=== PATIENT | female | born 1970 ===

== ENCOUNTER 2016-03-25 14:33 | Emergency (ER) | payer OTHER ==
[~2016-03-25] VITALS: Ht 160 cm; Wt 108.9 kg
--- NOTE | 2016-03-25 16:49 | ED UPPER/LOWER EXTREMITY COMPL ---
History of Present Illness General Chief Complaint: Lower Extremity Injury Stated Complaint: RT LEG AND ANKLE PAIN Source: patient Exam Limitations: no limitations Vital Signs & Intake/Output Vital Signs & Intake/Output Vital Signs Date Time Temp Pulse Resp B/P Pulse O2 O2 Flow FiO2 Ox Delivery Rate 03/25 1830 97.4 81 20 144/98 96 Room Air 03/25 1535 98.7 83 20 161/84 94 Room Air Room Air Allergies Coded Allergies: naproxen (Intermediate, SWELLING IN JAW 03/25/16) Uncoded Allergies: VICODEN (Intermediate, SWELLING IN GLANDS IN JAW. 03/25/16) Triage Note: PT TO ED S/P "I WAS WALKING YESTERDAY AND MY LEFT LEG WENT UNDERNEATH ME". PT STATING "I WENT DOWN ON MY LEFT KNEE". IT HAPPENED 2 DAYS AGO, I WENT TO [facility] THEY GAVE ME A WALKER AND MEDICINE, NOT ANY BETTER, I CALLED AND THEY SAID TO COME TO [facility]. PT AMBULATORY WITH WALKER, GAIT STABLE. Triage Nurses Notes Reviewed? yes HPI: This patient is a 45-year-old female who presented to the emergency department today for evaluation of left lower leg pain status post fall 2 days ago. The patient reported that she tripped on a Lego on the ground in her house. She reported that her left ankle twisted underneath her and she fell onto her knee. She reported that she was seen at [facility] where they did ankle and x -rays which were unremarkable. She was told to continue taking 800 mg of ibuprofen while along with her regularly prescribed pain management medication and to use a walker. She reported that she was told to see her doctor if the pain continued. She reported pain gets up to an 8 out of 10, is throbbing, and radiates from her knee down into her foot. She reported some numbness, but no tingling in her foot. She reported calf pain. The patient reported that the pain is worse when she walks and better when she rests. She denied any chest pain, difficulty breathing, abdominal pain, fevers, or chills. Past History Travel History Traveled to [place] past 21 day No Medical History Any Pertinent Medical History? see below for history Neurological: migraine EENT: NONE Cardiovascular: hypertension Respiratory: asthma Gastrointestinal: GERD Hepatic: NONE Renal: NONE Musculoskeletal: FIBROMYLASIA, LUPUS Psychiatric: anxiety, depression Endocrine: diabetes Blood Disorders: anemia Cancer(s): NONE STAFF SONOGRAPHER/Reproductive: NONE Surgical History Surgical History: non-contributory Psychosocial History What is your primary language Peruvian Tobacco Use: Never used ETOH Use: denies use Illicit Drug Use: denies illicit drug use Family History Hx Contributory? No Review of Systems Review of Systems Constitutional: Reports: no symptoms. EENTM: Reports: no symptoms. Respiratory: Reports: no symptoms. Cardiovascular: Reports: no symptoms. Gastrointestinal/Abdominal: Reports: no symptoms. Musculoskeletal: Reports: see HPI. Skin: Reports: no symptoms. Neurological/Psychological: Reports: see HPI. All Other Systems: Reviewed and Negative Physical Exam Physical Exam General Appearance: well developed/nourished, no apparent distress, alert, awake Comments: Well-developed well-nourished person in no acute distress HEENT: Normal EENT exam, head normocephalic, moist mucous membranes Neck: Supple Back: Normal inspection. Antalgic gait Respiratory: No respiratory distress. Speaking in full sentences Left lower extremity: Full range of motion of the hip, knee, and ankle. Range of motion at the ankle and knee with pain elicited on extension and flexion. Tenderness to palpation over the calf. Positive Homans sign. Tenderness to palpation over the dorsum of the foot and the patellar tendon. No effusions overlying erythema or ecchymosis to the joint spaces. No bony or muscular deformities noted. Capillary refill less than 2 seconds. Dorsalis pedis and posterior tibialis pulses 2+ and strong Neuro: Alert oriented x3, cranial nerves II through XII grossly intact. Skin: No appreciable rash on exposed skin, skin is warm and dry. Psych: Mood and affect is normal Progress Differential Diagnosis: arterial insufficiency, cellulitis, CHF, compartment syndrome, contusion, dislocation, DVT, fracture, gout, septic arthritis, sprain, tendon injury Plan of Care: Orders Procedure Date/time Status US-UNILATERAL VENOUS DOPPLER 03/25 1642 Active Diagnostic Imaging: Viewed by Me: Radiology Read, Ultrasound. Discussed w/RAD: Radiology Read, Ultrasound. Radiology Impression: PATIENT: DARELL RIVERA PRESENT AGE: 45 PATIENT ACCOUNT NO: [id number] : 68 LOCATION: [facility] ORDERING PHYSICIAN: LISSY MUÑOZ PA-C SERVICE DATE: 03/25/16 EXAM TYPE: RAD - XRY-ANKLE 3 OR MORE VIEWS L; XRY-FOOT COMPLETE, LEFT; XRY-KNEE, LEFT EXAMINATION : XR KNEE, ANKLE, FOOT, LEFT CLINICAL INFORMATION: Fall. Pain. COMPARISON: None TECHNIQUE: Four views of the left knee. 3 views of the right foot. 3 views of the right ankle. FINDINGS: Knee: There is no evidence of fracture, dislocation, or joint effusion. There is mild joint space height loss in the medial compartment. The soft tissues appear unremarkable. Ankle: There is no evidence of fracture or dislocation. The ankle mortise is congruent. The talar dome is intact. No soft tissue swelling regionally. Foot: There is no evidence of fracture or dislocation. Alignment is anatomic. Joint spaces are well- maintained. IMPRESSION: No evidence of fracture or dislocation involving the left knee, ankle, or foot. No left knee joint effusion. DICTATED BY: REEMA CURRAN MD DATE/TIME DICTATED:03/25/161752 [employer] V[employer] PRINCIPAL:CAMPOS DATE/TIME TRANSCRIBED:03/25/161752 CONFIDENTIAL, DO NOT COPY WITHOUT APPROPRIATE AUTHORIZATION. <Electronically signed in Other Vendor System> SIGNED BY: REEMA CURRAN MD 03/25/161757, PATIENT: DARELL RIVERA PRESENT AGE: 45 PATIENT ACCOUNT NO: [id number] : 68 LOCATION: [facility] ORDERING PHYSICIAN: LISSY MUÑOZ PA-C SERVICE DATE: 03/25/16 EXAM TYPE: US - US-UNILATERAL VENOUS DOPPLER EXAMINATION: US TRIPLEX LOWER EXTREMITY, LEFT CLINICAL INFORMATION: Left calf pain. Recent trauma. COMPARISON: None. TECHNIQUE: Color-flow triplex imaging with spectral analysis and compression Doppler were performed on the left lower extremity. FINDINGS: Waveforms are somewhat limited due to body habitus. Normal compression and augmented flow are noted throughout the lower extremity. The visualized common femoral vein, superficial femoral vein, profunda femoral vein, popliteal vein and midcalf peroneal and posterior tibial venous segments show no evidence of deep venous thrombosis. There is no Sharif's cyst. IMPRESSION: No evidence of deep venous thrombosis involving the left lower extremity. DICTATED BY: REEMA CURRAN MD DATE/TIME DICTATED:03/25/161827 [employer] VICE PRINCIPAL:BOYKIN DATE/TIME TRANSCRIBED:03/25/161827 CONFIDENTIAL, DO NOT COPY WITHOUT APPROPRIATE AUTHORIZATION. <Electronically signed in Other Vendor System> SIGNED BY: REEMA CURRAN MD 03/25/16 6225 Departure Departure Disposition: HOME OR SELF CARE Condition: Stable Clinical Impression Primary Impression: Left leg pain Referrals: LIZZIE MORA,DANG (PCP/Family) RAMONITA MORA,VALDEMAR Additional Instructions: Continue to use your walker for support. Elevate your leg when possible and apply ice or heat the affected area. Gentle stretching. Continue to take previously prescribed medication for pain as directed. Please call the orthopedic physician whose information has been provided to you in this packet for further evaluation and management. Please also call your primary care physician to schedule a follow-up appointment. Return for any worsening symptoms or concerns. Departure Forms: Customer Survey General Discharge Information
--- NOTE | 2016-03-25 17:58 | RADIOLOGY REPORT ---
EXAMINATION: XR KNEE, ANKLE, FOOT, LEFT CLINICAL INFORMATION: Fall. Pain. COMPARISON: None TECHNIQUE: Four views of the left knee. 3 views of the right foot. 3 views of the right ankle. FINDINGS: Knee: There is no evidence of fracture, dislocation, or joint effusion. There is mild joint space height loss in the medial compartment. The soft tissues appear unremarkable. Ankle: There is no evidence of fracture or dislocation. The ankle mortise is congruent. The talar dome is intact. No soft tissue swelling regionally. Foot: There is no evidence of fracture or dislocation. Alignment is anatomic. Joint spaces are well-maintained. IMPRESSION: No evidence of fracture or dislocation involving the left knee, ankle, or foot. No left knee joint effusion.
[2016-03-25 18:30] VITALS: BP 144/98
--- NOTE | 2016-03-25 18:32 | ULTRASOUND REPORT ---
EXAMINATION: US TRIPLEX LOWER EXTREMITY, LEFT CLINICAL INFORMATION: Left calf pain. Recent trauma. COMPARISON: None. TECHNIQUE: Color-flow triplex imaging with spectral analysis and compression Doppler were performed on the left lower extremity. FINDINGS: Waveforms are somewhat limited due to body habitus. Normal compression and augmented flow are noted throughout the lower extremity. The visualized common femoral vein, superficial femoral vein, profunda femoral vein, popliteal vein and midcalf peroneal and posterior tibial venous segments show no evidence of deep venous thrombosis. There is no Sharif's cyst. IMPRESSION: No evidence of deep venous thrombosis involving the left lower extremity.
== END 2016-03-25 18:44 ==
LOC: ERH 14:33
DX: M79.605 Pain in left leg (principal)
CPT/HCPCS: 73560-LT; 73610-LT; 73630-LT